=== PATIENT | male | born 1965 | race African-American/Black ===

== ENCOUNTER 2019-04-02 12:19 | Emergency (ER) | payer SELFPAY ==
[2019-04-02] MEDS ORDERED: Lisinopril 20 MG TAB ONE (12:34)
[2019-04-02] MEDS ORDERED: Dexamethasone 4 MG TAB ONE (12:34)
[2019-04-02] MEDS ORDERED: hydrOXYzine 25 MG TAB ONE (12:34)
== END 2019-04-02 12:41 | disposition home or self-care (01) ==
LOC: BURERS 12:19
DX: T63.481A Toxic effect of venom of other arthropod, accidental (unintentional), initial encounter (principal); F17.210 Nicotine dependence, cigarettes, uncomplicated; I10 Essential (primary) hypertension
CPT/HCPCS: 99281; J8540